=== PATIENT | female | born 1975 | race African-American/Black ===

== ENCOUNTER 2022-04-01 21:59 | Inpatient (IN) | payer MEDICARE, MEDICAID ==
[~2022-04-01] VITALS: Ht 170.2 cm; Wt 74.8 kg
[~2022-04-01 21:59] MED LIST: AMLO10TA80 MT; CARV25TA47 MT; GLIP-12 MT; HYDR-4135 MT; LISI40TA13 MT; T4 PO
[2022-04-01] MEDS ORDERED: MORPHINE SULFATE 4 MG/ML CPJ (NOT FOR IM USE) IV STA (23:35)
[2022-04-01] MEDS ORDERED: ONDANSETRON HCL 4MG/2ML INJ IV STA (23:35)
[2022-04-01] MEDS ORDERED: CALCIUM CHLORIDE 1GM/10ML SYR IV ONE (23:45)
[2022-04-01] MEDS ORDERED: DEXTROSE 50% WATER 50ML SYRINGE IV ONE (23:45)
[2022-04-01] MEDS ORDERED: ALBUTEROL (0.083%) 2.5MG/3ML NEB HHN ONE (23:45)
[2022-04-01] MEDS ORDERED: SODIUM BICARBONATE 8.4% 1 MEQ/ML 50ML SYR IV ONE (23:45)
[2022-04-01] MEDS ORDERED: INSULIN REGULAR (HUMULIN R) 300UNITS/3ML VIAL IV ONE (23:45)
[2022-04-02] VITALS (15 sets, daily range): BP systolic 124–200; BP diastolic 53–128
[2022-04-02 00:13] LABS: EOSINOPHILS % 0.3 % (0.0-5.0); HEMATOCRIT. 38.7 % (36.0-48.0); HEMOGLOBIN. 12.2 g/dL (12.0-16.0); LYMPHOCYTES % 10.6 % (20.0-50.0); MEAN CORPUSCULAR HEMOGLOBIN 29.9 pg (28.0-32.0); MEAN CORPUSCULAR VOLUME 94.7 fL (81.0-99.0); MEAN PLATELET VOLUME 9.9 fl (7.4-10.4); MONOCYTES % 7.4 % (2.0-8.0); NEUTROPHILS % 80.7 % (40.0-76.0); PLATELET 176 x1000/uL (130-400); RED BLOOD CELL COUNT 4.08 mill/uL (4.2-5.4); RED CELL DISTRIBUTION WIDTH 18.9 % (11.6-14.6)
[2022-04-02 00:18] LABS: CHLORIDE 103 mEq/L (98-107)
[2022-04-02] MEDS ORDERED: ALBUTEROL (0.083%) 2.5MG/3ML NEB ONE ×2 (02:41→02:42)
[2022-04-02] MEDS ORDERED: MAGNESIUM/ALUMINUM HYDROXIDE/SIMETHICONE 30ML UDC PO PRN (06:45)
[2022-04-02] MEDS ORDERED: ZOLPIDEM TARTRATE 5MG TABLET PO PRN (06:45)
[2022-04-02] MEDS ORDERED: IPRATROPIUM/ALBUTEROL 0.5-3(2.5)MG/3ML NEB NEB PRN (06:45)
[2022-04-02] MEDS ORDERED: ACETAMINOPHEN 325MG TABLET PO PRN ×2 (06:45)
[2022-04-02] MEDS ORDERED: GUAIFENESIN 200MG/10ML SUGAR FREE UDC PO PRN (06:45)
[2022-04-02] MEDS ORDERED: DOCUSATE SODIUM 100MG CAPSULE PO PRN (06:45)
[2022-04-02] MEDS ORDERED: NITROGLYCERIN 0.4MG TABLET SL SL PRN (06:45)
[2022-04-02] MEDS ORDERED: TRAMADOL 50MG TABLET PO PRN (06:45)
[2022-04-02] MEDS ORDERED: ONDANSETRON HCL 4MG/2ML INJ IV PRN (06:45)
[2022-04-02] MEDS ORDERED: DEXTROSE 50% WATER 50ML SYRINGE IV PRN (07:00)
[2022-04-02 07:42] LABS: T4 FREE 1.32 ng/dL (0.76-1.46)
[2022-04-02] MEDS: BLOOD SUGAR DIAGNOSTIC STRIP TEST SCH ×4 (07:50→20:55)
[2022-04-02 08:10] LABS: FOLIC ACID (FOLATE) SERUM >20 ng/mL ng/mL (>5.38); VITAMIN B12 SERUM 1519 pg/mL (211-911)
[2022-04-02] MEDS: INSULIN LISPRO 100 UNITS/ML SUBCUT SCH ×4 (08:20→22:42)
[2022-04-02] MEDS: ASPIRIN 325MG EC TABLET PO SCH ×2 (09:00→09:54)
[2022-04-02] MEDS: SEVELAMER CARBONATE 800 MG TABLET PO SCH ×3 (09:53→17:45)
[2022-04-02] MEDS: FAMOTIDINE 20MG TABLET PO SCH (09:54)
[2022-04-02] MEDS: METOPROLOL TARTRATE 25MG TABLET PO SCH ×2 (09:54→22:41)
[2022-04-02] MEDS: ZINC SULFATE 220 MG ( 50 ) CAPSULE PO SCH (09:54)
[2022-04-02] MEDS: AMLODIPINE 10MG TABLET PO SCH (09:54)
[2022-04-02] MEDS: ASCORBIC ACID 500 MG TABLET PO SCH ×2 (09:54→22:41)
[2022-04-02] MEDS: ENOXAPARIN 30MG/0.3ML SYR SUBCUT SCH (09:55)
[2022-04-02 10:29] LABS: *AMPHETAMINES SCREEN URINE NEGATIVE (NEGATIVE); *BARBITURATES SCREEN URINE NEGATIVE (NEGATIVE); *BENZODIAZEPINES SCREEN URINE NEGATIVE (NEGATIVE); *COCAINE SCREEN URINE NEGATIVE (NEGATIVE); CANNABINOID URINE SCREEN NEGATIVE (NEGATIVE); METHADONE URINE SCREEN NEGATIVE (NEGATIVE); PHENCYCLIDINE URINE SCREEN NEGATIVE (NEGATIVE)
[2022-04-02 10:30] LABS: OPIATES URINE SCREEN PRESUMTIVE POSITIVE (NEGATIVE)
[2022-04-02] MEDS: CLONIDINE 0.1MG TABLET PO PRN (11:56)
[2022-04-02] MEDS ORDERED: SODIUM POLYSTYRENE SULFONATE 15 G/60 ML BOT PO NR (13:00)
[2022-04-02] MEDS: HYDRALAZINE HCL 50MG TABLET PO SCH ×2 (13:14→22:41)
[2022-04-02] MEDS ORDERED: CEFTRIAXONE 1 G PREMIX 50 ML IV SCH (13:45)
[2022-04-02] MEDS ORDERED: HYDRALAZINE HCL 50MG TABLET PO SCH (14:00)
[2022-04-02] MEDS ORDERED: NALOXONE HCL 0.4MG/ML VIAL IV PRN (14:15)
[2022-04-02] MEDS ORDERED: CEFTRIAXONE 1,000 MG in DEXTROSE 5% WATER 50 ML IV SCH (15:30)
[2022-04-02] MEDS ORDERED: AZITHROMYCIN 500 MG in DEXT 5% WATER 250 ML IV SCH (16:00)
[2022-04-02 16:17] LABS: CREATINE KINASE MB FRACTION 5.1 ng/mL (0.5-3.6)
[2022-04-02 23:22] LABS: CREATINE KINASE MB FRACTION 4.2 ng/mL (0.5-3.6)
[2022-04-03] VITALS: BP 149/61
[2022-04-03 04:00] VITALS: BP 183/75
[2022-04-03] MEDS: CLONIDINE 0.1MG TABLET PO PRN (04:11)
[2022-04-03] MEDS: HYDRALAZINE HCL 50MG TABLET PO SCH ×3 (06:03→22:09)
[2022-04-03 06:13] LABS: EOSINOPHILS % 1.9 % (0.0-5.0); HEMATOCRIT. 37.8 % (36.0-48.0); HEMOGLOBIN. 11.7 g/dL (12.0-16.0); LYMPHOCYTES % 9.1 % (20.0-50.0); MEAN CORPUSCULAR HEMOGLOBIN 29.9 pg (28.0-32.0); MEAN CORPUSCULAR VOLUME 96.6 fL (81.0-99.0); MEAN PLATELET VOLUME 9.5 fl (7.4-10.4); MONOCYTES % 4.8 % (2.0-8.0); NEUTROPHILS % 83.2 % (40.0-76.0); PLATELET 188 x1000/uL (130-400); RED BLOOD CELL COUNT 3.91 mill/uL (4.2-5.4); RED CELL DISTRIBUTION WIDTH 19.5 % (11.6-14.6)
[2022-04-03 06:25] LABS: CHLORIDE 101 mEq/L (98-107)
[2022-04-03 06:34] LABS: PHOSPHORUS 7.2 mg/dL (2.5-4.9)
[2022-04-03] MEDS: INSULIN LISPRO 100 UNITS/ML SUBCUT SCH ×4 (07:50→21:00)
[2022-04-03 08:00] VITALS: BP 142/81
[2022-04-03] MEDS: BLOOD SUGAR DIAGNOSTIC STRIP TEST SCH ×4 (08:02→21:30)
[2022-04-03] MEDS: METOPROLOL TARTRATE 25MG TABLET PO SCH ×2 (08:53→22:09)
[2022-04-03] MEDS: SEVELAMER CARBONATE 800 MG TABLET PO SCH ×3 (08:53→19:01)
[2022-04-03] MEDS: ASCORBIC ACID 500 MG TABLET PO SCH ×2 (08:53→22:09)
[2022-04-03] MEDS: ASPIRIN 325MG EC TABLET PO SCH ×2 (08:53→08:57)
[2022-04-03] MEDS: FAMOTIDINE 20MG TABLET PO SCH (08:53)
[2022-04-03] MEDS: ZINC SULFATE 220 MG ( 50 ) CAPSULE PO SCH (08:53)
[2022-04-03] MEDS: AMLODIPINE 10MG TABLET PO SCH (08:54)
[2022-04-03] MEDS: ENOXAPARIN 30MG/0.3ML SYR SUBCUT SCH (08:54)
[2022-04-03 12:00] VITALS: BP 154/65
[2022-04-03 12:26] LABS: HEPATITIS B SURFACE ANTIGEN NEGATIVE
[2022-04-03 16:00] VITALS: BP 158/75
[2022-04-03] MEDS: CEFTRIAXONE 1,000 MG in DEXTROSE 5% WATER 50 ML IV SCH (17:49)
[2022-04-03] MEDS: AZITHROMYCIN 500 MG in DEXT 5% WATER 250 ML IV SCH (19:01)
[2022-04-03 20:00] VITALS: BP 166/69
[2022-04-04] VITALS (7 sets, daily range): BP systolic 135–185; BP diastolic 59–80
[2022-04-04] MEDS: HYDRALAZINE HCL 50MG TABLET PO SCH ×3 (06:31→21:30)
[2022-04-04] MEDS: INSULIN LISPRO 100 UNITS/ML SUBCUT SCH ×4 (06:46→21:28)
[2022-04-04] MEDS: BLOOD SUGAR DIAGNOSTIC STRIP TEST SCH ×4 (06:46→20:36)
[2022-04-04] MEDS: ENOXAPARIN 30MG/0.3ML SYR SUBCUT SCH (08:04)
[2022-04-04] MEDS: METOPROLOL TARTRATE 25MG TABLET PO SCH (08:13)
[2022-04-04] MEDS: AMLODIPINE 10MG TABLET PO SCH (08:13)
[2022-04-04] MEDS: ASCORBIC ACID 500 MG TABLET PO SCH ×2 (08:13→21:26)
[2022-04-04] MEDS: ZINC SULFATE 220 MG ( 50 ) CAPSULE PO SCH (08:13)
[2022-04-04] MEDS: SEVELAMER CARBONATE 800 MG TABLET PO SCH ×3 (08:13→18:24)
[2022-04-04] MEDS: FAMOTIDINE 20MG TABLET PO SCH (08:14)
[2022-04-04] MEDS: CLONIDINE 0.1MG TABLET PO PRN (08:14)
[2022-04-04] MEDS: CARVEDILOL 6.25 MG TABLET PO SCH ×2 (10:46→21:26)
[2022-04-04 12:08] LABS: INR 1.1; PROTHROMBIN TIME 11.8 sec (9.6-11.0)
[2022-04-04] MEDS ORDERED: MIDAZOLAM HCL 2 MG/2 ML VIAL ONE (12:32)
[2022-04-04] MEDS ORDERED: LIDOCAINE HCL 1% 20ML VIAL (Pyxis) INJ ONE (12:32)
[2022-04-04] MEDS ORDERED: IODIXANOL 320MG/ML 100 ML BOTTLE IV ONE (12:32)
[2022-04-04] MEDS ORDERED: FENTANYL CITRATE/PF 50MCG/ML 2ML VIAL ONE (12:32)
[2022-04-04] MEDS ORDERED: DIPHENHYDRAMINE 50MG/ML VIAL ONE (12:32)
[2022-04-04] MEDS ORDERED: HYDRALAZINE 20MG/ML VIAL ONE (14:23)
[2022-04-04] MEDS ORDERED: ATROPINE SULFATE 1MG/10ML SYR IV PRN (15:30)
[2022-04-04] MEDS: CEFTRIAXONE 1,000 MG in DEXTROSE 5% WATER 50 ML IV SCH (15:48)
[2022-04-04] MEDS: AZITHROMYCIN 500 MG in DEXT 5% WATER 250 ML IV SCH (16:17)
[2022-04-04] MEDS: HYDROCODONE/ACETAMINOPHEN 5/325MG TABLET PO PRN (16:18)
[2022-04-05] VITALS: BP 133/52
[2022-04-05 03:59] VITALS: BP 148/57
[2022-04-05] MEDS: HYDRALAZINE HCL 50MG TABLET PO SCH ×3 (05:38→20:56)
[2022-04-05 07:28] LABS: BASOPHILS % 1.2 % (0.0-2.0); EOSINOPHILS % 6.7 % (0.0-5.0); HEMATOCRIT. 35.5 % (36.0-48.0); HEMOGLOBIN. 11.4 g/dL (12.0-16.0); LYMPHOCYTES % 24.4 % (20.0-50.0); MEAN CORPUSCULAR HEMOGLOBIN 29.2 pg (28.0-32.0); MEAN CORPUSCULAR VOLUME 90.4 fL (81.0-99.0); MEAN PLATELET VOLUME 9.1 fl (7.4-10.4); MONOCYTES % 10.1 % (2.0-8.0); NEUTROPHILS % 57.6 % (40.0-76.0); PLATELET 241 x1000/uL (130-400); RED BLOOD CELL COUNT 3.93 mill/uL (4.2-5.4); RED CELL DISTRIBUTION WIDTH 18.9 % (11.6-14.6)
[2022-04-05] MEDS: BLOOD SUGAR DIAGNOSTIC STRIP TEST SCH ×4 (07:44→20:57)
[2022-04-05] MEDS: INSULIN LISPRO 100 UNITS/ML SUBCUT SCH ×4 (07:44→20:57)
[2022-04-05 08:00] VITALS: BP 163/67
[2022-04-05] MEDS: ASCORBIC ACID 500 MG TABLET PO SCH ×2 (08:32→20:56)
[2022-04-05] MEDS: HYDROCODONE/ACETAMINOPHEN 5/325MG TABLET PO PRN ×3 (08:32→21:46)
[2022-04-05] MEDS: ZINC SULFATE 220 MG ( 50 ) CAPSULE PO SCH (08:32)
[2022-04-05] MEDS: ENOXAPARIN 30MG/0.3ML SYR SUBCUT SCH (08:32)
[2022-04-05] MEDS: FAMOTIDINE 20MG TABLET PO SCH (08:32)
[2022-04-05] MEDS: SEVELAMER CARBONATE 800 MG TABLET PO SCH ×3 (08:32→17:57)
[2022-04-05] MEDS: AMLODIPINE 10MG TABLET PO SCH (08:34)
[2022-04-05] MEDS: CARVEDILOL 6.25 MG TABLET PO SCH ×2 (08:34→20:56)
[2022-04-05 12:00] VITALS: BP 164/79
[2022-04-05] MEDS: CEFTRIAXONE 1,000 MG in DEXTROSE 5% WATER 50 ML IV SCH (15:25)
[2022-04-05] MEDS: AZITHROMYCIN 500 MG in DEXT 5% WATER 250 ML IV SCH (15:25)
[2022-04-05 16:00] VITALS: BP 172/70
[2022-04-05] MEDS: CLONIDINE 0.1MG TABLET PO PRN (16:05)
[2022-04-05 20:00] VITALS: BP 165/68
[2022-04-06] VITALS: BP 160/67
[2022-04-06] MEDS: CLONIDINE 0.1MG TABLET PO PRN (03:37)
[2022-04-06 04:00] VITALS: BP 170/73
[2022-04-06] MEDS: HYDRALAZINE HCL 50MG TABLET PO SCH (06:25)
[2022-04-06] MEDS: BLOOD SUGAR DIAGNOSTIC STRIP TEST SCH (06:26)
[2022-04-06 08:00] VITALS: BP 163/70
[2022-04-06] MEDS: ASCORBIC ACID 500 MG TABLET PO SCH (09:11)
[2022-04-06] MEDS: CARVEDILOL 6.25 MG TABLET PO SCH (09:11)
[2022-04-06] MEDS: ENOXAPARIN 30MG/0.3ML SYR SUBCUT SCH (09:11)
[2022-04-06] MEDS: AMLODIPINE 10MG TABLET PO SCH (09:11)
[2022-04-06] MEDS: FAMOTIDINE 20MG TABLET PO SCH (09:11)
[2022-04-06] MEDS: SEVELAMER CARBONATE 800 MG TABLET PO SCH (09:11)
[2022-04-06] MEDS: ZINC SULFATE 220 MG ( 50 ) CAPSULE PO SCH (09:12)
[2022-04-06] MEDS: INSULIN LISPRO 100 UNITS/ML SUBCUT SCH (09:12)
[2022-04-06 09:41] VITALS: BP 163/70
[2022-04-07] MEDS ORDERED: ASPIRIN 81MG EC TABLET PO SCH (09:00)
== END 2022-04-06 11:47 | disposition home or self-care (01) | DRG 871 ==
LOC: ER 21:59 → MICUSO 04-02 03:49 → ENRESERV 04-02 04:08 → CVICU 04-02 05:24 → 6WST 04-02 13:38
PROVIDERS: ADMIT Internal Medicine Nephrology; ATTEND Internal Medicine
PROC: 5A1D70Z Performance of Urinary Filtration, Intermittent, Less than 6 Hours Per Day (ICD-10-PCS; 2022-04-02)
PROC: 5A1D70Z Performance of Urinary Filtration, Intermittent, Less than 6 Hours Per Day (ICD-10-PCS; 2022-04-03)
PROC: 4A023N7 Measurement of Cardiac Sampling and Pressure, Left Heart, Percutaneous Approach (ICD-10-PCS; principal; 2022-04-04)
PROC: B211YZZ Fluoroscopy of Multiple Coronary Arteries using Other Contrast (ICD-10-PCS; 2022-04-04)
PROC: B41FYZZ Fluoroscopy of Right Lower Extremity Arteries using Other Contrast (ICD-10-PCS; 2022-04-04)
DX: A41.9 Sepsis, unspecified organism (principal); I50.43 Acute on chronic combined systolic (congestive) and diastolic (congestive) heart failure; N18.6 End stage renal disease; J18.9 Pneumonia, unspecified organism; I21.A1 Myocardial infarction type 2; J96.01 Acute respiratory failure with hypoxia; I42.8 Other cardiomyopathies; I13.2 Hypertensive heart and chronic kidney disease with heart failure and with stage 5 chronic kidney disease, or end stage renal disease; E87.1 Hypo-osmolality and hyponatremia; I25.10 Atherosclerotic heart disease of native coronary artery without angina pectoris; E87.5 Hyperkalemia; E78.5 Hyperlipidemia, unspecified; E11.22 Type 2 diabetes mellitus with diabetic chronic kidney disease; R77.8 Other specified abnormalities of plasma proteins; Z20.822 Contact with and (suspected) exposure to COVID-19; Z99.2 Dependence on renal dialysis; Z79.4 Long term (current) use of insulin; Z79.899 Other long term (current) drug therapy
CPT/HCPCS: 36415; 71045; 80048; 80053; 80305; 82550; 82553; 82607; 82746; 82962; 83540; 83550; 83605; 83735; 84100; 84145; 84439; 84443; 84484; 85025; 86705; 86709; 86803; 87340; 87426; 93005; 93306; 93458; 93970; 94644; 97161; 97166; 99291; C1760; C1769; C1887; C1893; J0360; J0456; J0696; J1200; J1644; J1650; J1815; J2250; J2270; J2405; J3010; J3490; J7060; Q9967

== ENCOUNTER 2022-05-30 23:10 | Emergency (ER) | payer MEDICARE, MEDICAID ==
[~2022-05-30] VITALS: Ht 177.8 cm; Wt 57.0 kg
[2022-05-30 23:35] VITALS: BP 168/84
== END 2022-05-30 23:35 | disposition home or self-care (01) ==
LOC: ER 23:10
DX: E11.65 Type 2 diabetes mellitus with hyperglycemia (principal); Z45.2 Encounter for adjustment and management of vascular access device; I50.9 Heart failure, unspecified; Z88.6 Allergy status to analgesic agent; Z91.018 Allergy to other foods
CPT/HCPCS: 82962; 99281

== ENCOUNTER 2022-06-09 11:32 | Inpatient (IN) | payer MEDICARE, MEDICAID ==
[~2022-06-09] VITALS: Ht 162.6 cm; Wt 61.9 kg
[2022-06-09 12:12] LABS: BASOPHILS % 0.9 % (0.0-2.0); EOSINOPHILS % 3.6 % (0.0-5.0); HEMATOCRIT. 34.9 % (36.0-48.0); HEMOGLOBIN. 11.4 g/dL (12.0-16.0); LYMPHOCYTES % 11.1 % (20.0-50.0); MEAN CORPUSCULAR HEMOGLOBIN 30.5 pg (28.0-32.0); MEAN CORPUSCULAR VOLUME 93.4 fL (81.0-99.0); MEAN PLATELET VOLUME 9.6 fl (7.4-10.4); MONOCYTES % 7.3 % (2.0-8.0); NEUTROPHILS % 77.1 % (40.0-76.0); PLATELET 199 x1000/uL (130-400); RED BLOOD CELL COUNT 3.73 mill/uL (4.2-5.4); RED CELL DISTRIBUTION WIDTH 17.5 % (11.6-14.6)
[2022-06-09 12:21] LABS: CHLORIDE 99 mEq/L (98-107)
[2022-06-09 12:37] LABS: CREATINE KINASE 157 IU/L (26-192); ETHANOL BLOOD < 10 mg/dL
[2022-06-09] MEDS ORDERED: HYDRALAZINE 20MG/ML VIAL IV NR (12:45)
[2022-06-09] MEDS ORDERED: DEXTROSE 50% WATER 50ML SYRINGE IV NR (12:45)
[2022-06-09] MEDS ORDERED: INSULIN REGULAR (HUMULIN R) 300UNITS/3ML VIAL IV NR (12:45)
[2022-06-09] MEDS ORDERED: SODIUM BICARBONATE 8.4% 1 MEQ/ML 50ML SYR IV NR (12:45)
[2022-06-09] MEDS ORDERED: ZOLPIDEM TARTRATE 5MG TABLET PO PRN (14:00)
[2022-06-09] MEDS ORDERED: NITROGLYCERIN 0.4MG TABLET SL SL PRN ×2 (14:00→14:30)
[2022-06-09] MEDS ORDERED: HYDRALAZINE HCL 50MG TABLET PO SCH ×2 (14:00)
[2022-06-09] MEDS ORDERED: ACETAMINOPHEN 325MG TABLET PO PRN ×2 (14:15)
[2022-06-09] MEDS ORDERED: DOCUSATE SODIUM 100MG CAPSULE PO PRN (14:15)
[2022-06-09] MEDS ORDERED: MAGNESIUM/ALUMINUM HYDROXIDE/SIMETHICONE 30ML UDC PO PRN (14:15)
[2022-06-09] MEDS ORDERED: IPRATROPIUM/ALBUTEROL 0.5-3(2.5)MG/3ML NEB NEB PRN (14:15)
[2022-06-09] MEDS ORDERED: ONDANSETRON HCL 4MG/2ML INJ IV PRN (14:15)
[2022-06-09] MEDS ORDERED: GUAIFENESIN 200MG/10ML SUGAR FREE UDC PO PRN (14:15)
[2022-06-09 14:19] LABS: HEPATITIS B SURFACE ANTIGEN NEGATIVE
[2022-06-09] MEDS: NITROGLYCERIN OINT 1GM/INCH UDPKT TD SCH ×2 (14:19→21:44)
[2022-06-09 14:34] LABS: INR 1.1; PROTHROMBIN TIME 11.8 sec (9.6-11.0)
[2022-06-09 15:30] VITALS: BP 222/98
[2022-06-09] MEDS: CLONIDINE 0.1MG TABLET PO PRN (16:32)
[2022-06-09 16:44] VITALS: BP 222/98
[2022-06-09] MEDS ORDERED: DEXTROSE 50% WATER 50ML SYRINGE IV PRN (17:00)
[2022-06-09] MEDS: BLOOD SUGAR DIAGNOSTIC STRIP TEST SCH ×2 (17:40→20:45)
[2022-06-09] MEDS: INSULIN LISPRO 100 UNITS/ML SUBCUT SCH ×2 (18:10→20:45)
[2022-06-09] MEDS: SEVELAMER CARBONATE 800 MG TABLET PO SCH (18:23)
[2022-06-09] MEDS: CARVEDILOL 12.5MG TABLET PO SCH (18:23)
[2022-06-09] MEDS: FAMOTIDINE 20MG TABLET PO SCH (18:23)
[2022-06-09] MEDS: ENOXAPARIN 30MG/0.3ML SYR SUBCUT SCH (18:39)
[2022-06-09] MEDS: HYDRALAZINE HCL 50MG TABLET PO SCH ×2 (18:56→23:11)
[2022-06-09] MEDS: HALOPERIDOL LACTATE 5MG/ML VIAL IM PRN (19:28)
[2022-06-09 20:26] VITALS: BP 199/96
[2022-06-10] VITALS (8 sets, daily range): BP systolic 119–209; BP diastolic 62–90
[2022-06-10] MEDS: CLONIDINE 0.1MG TABLET PO PRN (00:10)
[2022-06-10 00:27] LABS: CREATINE KINASE 175 IU/L (26-192)
[2022-06-10] MEDS: HALOPERIDOL LACTATE 5MG/ML VIAL IM PRN (04:11)
[2022-06-10] MEDS: HYDRALAZINE HCL 50MG TABLET PO SCH ×3 (05:01→17:30)
[2022-06-10] MEDS: CARVEDILOL 12.5MG TABLET PO SCH ×2 (05:02→17:35)
[2022-06-10] MEDS: NITROGLYCERIN OINT 1GM/INCH UDPKT TD SCH ×3 (05:03→21:48)
[2022-06-10 06:17] LABS: CHLORIDE 100 mEq/L (98-107)
[2022-06-10 06:33] LABS: CREATINE KINASE 163 IU/L (26-192); CREATINE KINASE MB FRACTION 4.8 ng/mL (0.5-3.6)
[2022-06-10 06:57] LABS: BASOPHILS % 1.1 % (0.0-2.0); EOSINOPHILS % 3.2 % (0.0-5.0); HEMATOCRIT. 35.5 % (36.0-48.0); HEMOGLOBIN. 11.8 g/dL (12.0-16.0); LYMPHOCYTES % 18.4 % (20.0-50.0); MEAN CORPUSCULAR HEMOGLOBIN 30.9 pg (28.0-32.0); MEAN CORPUSCULAR VOLUME 93.3 fL (81.0-99.0); MEAN PLATELET VOLUME 9.2 fl (7.4-10.4); MONOCYTES % 10.1 % (2.0-8.0); NEUTROPHILS % 67.2 % (40.0-76.0); PLATELET 193 x1000/uL (130-400); RED BLOOD CELL COUNT 3.81 mill/uL (4.2-5.4); RED CELL DISTRIBUTION WIDTH 17.4 % (11.6-14.6)
[2022-06-10] MEDS: BLOOD SUGAR DIAGNOSTIC STRIP TEST SCH ×4 (07:40→21:16)
[2022-06-10] MEDS: INSULIN LISPRO 100 UNITS/ML SUBCUT SCH ×4 (08:10→21:47)
[2022-06-10] MEDS: SEVELAMER CARBONATE 800 MG TABLET PO SCH ×3 (09:00→17:30)
[2022-06-10] MEDS: FAMOTIDINE 20MG TABLET PO SCH (09:00)
[2022-06-10] MEDS: AMLODIPINE 10MG TABLET PO SCH (09:01)
[2022-06-10] MEDS: ENOXAPARIN 30MG/0.3ML SYR SUBCUT SCH (14:29)
[2022-06-11] VITALS: BP 169/75
[2022-06-11] MEDS: HYDRALAZINE HCL 50MG TABLET PO SCH ×4 (00:52→17:12)
[2022-06-11 04:00] VITALS: BP 169/73
[2022-06-11] MEDS: BLOOD SUGAR DIAGNOSTIC STRIP TEST SCH ×4 (05:59→21:04)
[2022-06-11] MEDS: CARVEDILOL 12.5MG TABLET PO SCH ×2 (06:31→17:11)
[2022-06-11] MEDS: NITROGLYCERIN OINT 1GM/INCH UDPKT TD SCH ×3 (06:31→21:20)
[2022-06-11 07:55] VITALS: BP 115/66
[2022-06-11] MEDS: SEVELAMER CARBONATE 800 MG TABLET PO SCH ×3 (08:36→17:12)
[2022-06-11] MEDS: AMLODIPINE 10MG TABLET PO SCH (08:37)
[2022-06-11] MEDS: FAMOTIDINE 20MG TABLET PO SCH (08:37)
[2022-06-11] MEDS: INSULIN LISPRO 100 UNITS/ML SUBCUT SCH ×4 (08:38→21:15)
[2022-06-11] MEDS ORDERED: BUTALBITAL/ACETAMINOPHEN/CAFFEINE 50/325/40MG TABLET PO PRN (10:30)
[2022-06-11 11:39] VITALS: BP 172/77
[2022-06-11] MEDS: ENOXAPARIN 30MG/0.3ML SYR SUBCUT SCH (14:00)
[2022-06-11 15:41] VITALS: BP 145/67
[2022-06-11 20:00] VITALS: BP 135/60
[2022-06-12] VITALS: BP 145/60
[2022-06-12] MEDS: HYDRALAZINE HCL 50MG TABLET PO SCH ×5 (00:46→23:26)
[2022-06-12 04:00] VITALS: BP 168/69
[2022-06-12] MEDS: CARVEDILOL 12.5MG TABLET PO SCH ×2 (06:18→18:17)
[2022-06-12] MEDS: NITROGLYCERIN OINT 1GM/INCH UDPKT TD SCH ×3 (06:21→21:12)
[2022-06-12] MEDS: BLOOD SUGAR DIAGNOSTIC STRIP TEST SCH ×4 (06:21→20:49)
[2022-06-12 08:00] VITALS: BP 167/71
[2022-06-12] MEDS: FAMOTIDINE 20MG TABLET PO SCH (08:30)
[2022-06-12] MEDS: SEVELAMER CARBONATE 800 MG TABLET PO SCH ×3 (08:31→18:16)
[2022-06-12] MEDS: AMLODIPINE 10MG TABLET PO SCH (08:31)
[2022-06-12] MEDS: INSULIN LISPRO 100 UNITS/ML SUBCUT SCH ×4 (08:33→21:12)
[2022-06-12 12:00] VITALS: BP 163/75
[2022-06-12] MEDS: ENOXAPARIN 30MG/0.3ML SYR SUBCUT SCH (14:45)
[2022-06-12 16:00] VITALS: BP 171/71
[2022-06-12 20:34] VITALS: BP 176/73
[2022-06-12] MEDS: CLONIDINE 0.1MG TABLET PO PRN (21:13)
[2022-06-13] VITALS: BP 161/67
[2022-06-13 04:00] VITALS: BP 164/56
[2022-06-13] MEDS: CLONIDINE 0.1MG TABLET PO PRN (04:20)
[2022-06-13] MEDS: CARVEDILOL 12.5MG TABLET PO SCH (06:07)
[2022-06-13] MEDS: HYDRALAZINE HCL 50MG TABLET PO SCH (06:07)
[2022-06-13] MEDS: NITROGLYCERIN OINT 1GM/INCH UDPKT TD SCH (06:07)
[2022-06-13 08:00] VITALS: BP 168/74
[2022-06-13] MEDS: BLOOD SUGAR DIAGNOSTIC STRIP TEST SCH (08:06)
[2022-06-13] MEDS: SEVELAMER CARBONATE 800 MG TABLET PO SCH (08:56)
[2022-06-13] MEDS: AMLODIPINE 10MG TABLET PO SCH (08:57)
[2022-06-13] MEDS: INSULIN LISPRO 100 UNITS/ML SUBCUT SCH (08:59)
[2022-06-13] MEDS: FAMOTIDINE 20MG TABLET PO SCH (09:08)
[2022-06-13] MEDS ORDERED: ISOS120T9 MT (11:06)
[2022-06-13 11:10] VITALS: BP 168/74
== END 2022-06-13 11:48 | disposition home or self-care (01) | DRG 91 ==
LOC: ER 11:41 → 7WST 13:27 → EDBEDREQTM 13:29 → EDBEDREQ 13:29 → ENRESERV 13:54
PROVIDERS: ADMIT Internal Medicine; ATTEND Internal Medicine
PROC: 5A1D70Z Performance of Urinary Filtration, Intermittent, Less than 6 Hours Per Day (ICD-10-PCS; principal; 2022-06-10)
PROC: 5A1D70Z Performance of Urinary Filtration, Intermittent, Less than 6 Hours Per Day (ICD-10-PCS; 2022-06-12)
DX: G92.8 Other toxic encephalopathy (principal); I50.33 Acute on chronic diastolic (congestive) heart failure; N18.6 End stage renal disease; I13.2 Hypertensive heart and chronic kidney disease with heart failure and with stage 5 chronic kidney disease, or end stage renal disease; I16.1 Hypertensive emergency; E87.1 Hypo-osmolality and hyponatremia; E87.5 Hyperkalemia; E11.22 Type 2 diabetes mellitus with diabetic chronic kidney disease; E11.65 Type 2 diabetes mellitus with hyperglycemia; D63.8 Anemia in other chronic diseases classified elsewhere; Z99.2 Dependence on renal dialysis; Z91.15 Patient's noncompliance with renal dialysis; Z91.018 Allergy to other foods; Z79.4 Long term (current) use of insulin
CPT/HCPCS: 36415; 71045; 80053; 80307; 80320; 80329; 82140; 82550; 82553; 82962; 83036; 83605; 83880; 84145; 84443; 84484; 85025; 86705; 86709; 86803; 87340; 93005; 93306; 93970; 97161; 97165; 99291; J0360; J1630; J1650; J1815; J2405; J3490; J7030; G0480

== ENCOUNTER 2024-05-06 11:37 | Emergency (ER) | payer MEDICARE, MEDICAID ==
[~2024-05-06] VITALS: Ht 160 cm; Wt 60.0 kg
[~2024-05-06 11:37] MED LIST changes: -HYDR-4135 MT; +HYDR50TA40 MT; +ISOS120T13 MT; -LISI40TA13 MT
[2024-05-06 11:39] VITALS: O2SAT 98
[2024-05-06 12:52] LABS: HEMATOCRIT. 31.1 % (36.0-48.0); HEMOGLOBIN. 10.2 g/dL (12.0-16.0); MEAN CORPUSCULAR HEMOGLOBIN 29.8 pg (28.0-32.0); MEAN CORPUSCULAR HGB CONC 32.9 g/dL (31.0-37.0); MEAN CORPUSCULAR VOLUME 90.6 fL (81.0-99.0); MEAN PLATELET VOLUME 8.5 fl (7.4-10.4); PLATELET 305 x1000/uL (130-400); RED BLOOD CELL COUNT 3.43 mill/uL (4.2-5.4); RED CELL DISTRIBUTION WIDTH 17.7 % (11.6-14.6); WHITE BLOOD COUNT 12.8 x1000/uL (4.5-11.0)
[2024-05-06 12:53] LABS: DIFFERENTIAL COMMENT 1
[2024-05-06 13:27] LABS: CHLORIDE 98 mEq/L (98-107); POTASSIUM 4.8 mEq/L (3.5-5.1); SODIUM 132 mEq/L (136-145)
[2024-05-06 13:28] LABS: CARBON DIOXIDE 21 mEq/L (21-32)
[2024-05-06 13:33] LABS: ANISOCYTOSIS 1+; GLUCOSE 224 mg/dL (70-105); PLATELET ESTIMATE NORMAL; UREA NITROGEN BLOOD 31 mg/dL (9-23)
[2024-05-06 13:45] LABS: CREATININE 6.4 mg/dL (0.6-1.0); TROPONIN I HIGH SENSITIVITY 40 ng/L (3.0-34)
[2024-05-06] MEDS ORDERED: IOHEXOL-350 100 ML BOTTLE ONE (15:01)
[2024-05-06] MEDS ORDERED: NITROGLYCERIN 0.4MG TABLET SL SL PRN (16:15)
[2024-05-06] MEDS ORDERED: ACETAMINOPHEN 325MG TABLET PO PRN ×2 (16:15)
[2024-05-06] MEDS ORDERED: DOCUSATE SODIUM 100MG CAPSULE PO PRN (16:15)
[2024-05-06] MEDS ORDERED: MAGNESIUM/ALUMINUM HYDROXIDE/SIMETHICONE 30ML UDC PO PRN (16:15)
[2024-05-06] MEDS ORDERED: IPRATROPIUM/ALBUTEROL 0.5-3(2.5)MG/3ML NEB NEB PRN (16:15)
[2024-05-06] MEDS ORDERED: GUAIFENESIN 200MG/10ML SUGAR FREE UDC PO PRN (16:15)
[2024-05-06] MEDS ORDERED: CLONIDINE 0.1MG TABLET PO PRN (16:15)
[2024-05-06] MEDS ORDERED: ZOLPIDEM TARTRATE 5MG TABLET PO PRN (16:15)
[2024-05-06] MEDS ORDERED: DEXTROSE 50% WATER 50ML SYRINGE IV PRN (16:15)
[2024-05-06] MEDS ORDERED: ONDANSETRON HCL 4MG/2ML INJ IV PRN (16:15)
[2024-05-06] MEDS: SODIUM CHLORIDE 0.9% 100 ML IV ONE (16:19)
[2024-05-06] MEDS: CEFTRIAXONE 1GM/50ML 50 ML IV ONE (16:27)
[2024-05-06] MEDS ORDERED: BLOOD SUGAR DIAGNOSTIC STRIP TEST SCH (17:00)
[2024-05-06 17:02] LABS: T4 FREE 1.11 ng/dL (0.89-1.76)
[2024-05-06 17:03] LABS: THYROID STIMULATING HORMONE 1.31 uIU/mL (0.55-4.78)
[2024-05-06] MEDS: AZITHROMYCIN 500MG/250ML 250 ML IV ONE (17:26)
[2024-05-06] MEDS ORDERED: CARVEDILOL 12.5MG TABLET PO SCH (18:00)
[2024-05-06] MEDS ORDERED: ENOXAPARIN 30MG/0.3ML SYR SUBCUT SCH (18:00)
[2024-05-06] MEDS ORDERED: PIPERACILLIN/TAZO 3.375G/50ML 50 ML IV SCH (18:00)
[2024-05-06] MEDS ORDERED: VANCOMYCIN 1.25GM PMX (XELLIA) 250 ML IV NR (18:00)
[2024-05-06] MEDS ORDERED: DOXY200T8 MT (18:05)
[2024-05-06] MEDS ORDERED: INSULIN LISPRO 100 UNITS/ML SUBCUT SCH (18:20)
[2024-05-06 18:39] VITALS: BP 148/88; PULSE 86; RESP 17; TEMP 98.8
[2024-05-06] MEDS ORDERED: FAMOTIDINE 20MG TABLET PO SCH (21:00)
[2024-05-06] MEDS ORDERED: HYDRALAZINE HCL 50MG TABLET PO SCH (22:00)
[2024-05-06] MEDS ORDERED: INSULIN GLARGINE 100 UNITS/ML SUBCUT SCH (22:00)
[2024-05-07] MEDS ORDERED: AMLODIPINE 10MG TABLET PO SCH (09:00)
[2024-05-07] MEDS ORDERED: ASPIRIN 325MG EC TABLET PO SCH (09:00)
== END 2024-05-06 18:40 | disposition home or self-care (01) ==
LOC: ER 11:37 → EDBEDREQTM 15:28 → EDBEDREQ 15:28 → ER 18:40 → CANBEDREQ 05-08 02:37
DX: R07.89 Other chest pain (principal); I50.9 Heart failure, unspecified; E11.9 Type 2 diabetes mellitus without complications; I25.2 Old myocardial infarction; Z99.2 Dependence on renal dialysis; Z79.899 Other long term (current) drug therapy
CPT/HCPCS: 99291; 96365; 71275; 71045; 96367; 80061; 80048; 83036; 83880; 84439; 83605; 84443; 85025; 85379; 87040; 84484; 36415; 84145; 93005; Q9967; J3370; J0456; J0696; J7050